=== PATIENT | female | born 1990 | race American Indian/Alaskan Native ===

== ENCOUNTER 2018-03-01 08:19 | Emergency (ER) | payer BC, MEDICAID ==
[2018-03-01 09:35] LABS: Bilirubin,Urine NEG (Negative); Blood,Urine NEG (Negative); Color,Urine Yellow (Yellow); HCG Qualitative,Urine Negative (Negative); Mucus,Urine FEW /HPF; Protein,Urine <15 mg/dL mg/dL (Negative); Urobilinogen,Urine < 2.0 mg/dL (<2.0)
--- NOTE | 2018-03-01 11:40 | Emergency Department Report ---
HPI - General Chief Complaint: Urogenital-Female Time Seen by Provider: 03/01/18 11:26 - [facility] HPI: Patient is a 27-year-old female with no prior medical history presents ED complaining of painful urination for the past 2 days. Patient denies fevers/ chills/nausea vomiting/abdominal pain/vaginal discharge or vaginal bleeding. She states last menstrual period was 02/02/18 and normal ED Past Medical Hx - Past Medical History Previous Medical History?: No - Surgical History Additional Surgical History: C-sections - Social History Smoking Status: Never Smoker Substance Use Type: None - Medications Home Medications: Home Medications Medication Instructions Recorded Confirmed Last Taken Type Cyclobenzaprine [Flexeril] 10 mg PO TID PRN #15 tablet 04/15/16 Unknown Rx Ibuprofen [Motrin 800 MG tab] 800 mg PO Q8HR PRN #30 tablet 04/15/16 Unknown Rx Ciprofloxacin HCl [Ciprofloxacin 500 mg PO Q12HR #10 tab 03/01/18 Unknown Rx TAB] Phenazopyridine [Pyridium] 200 mg PO BID #6 tab 03/01/18 Unknown Rx ED Review of Systems ROS: Stated complaint: POSS UTI Other details as noted in HPI Constitutional: denies: chills, fever Eyes: denies: eye pain, eye discharge, vision change ENT: denies: ear pain, throat pain Respiratory: denies: cough, shortness of breath, wheezing Cardiovascular: denies: chest pain, palpitations Endocrine: no symptoms reported Gastrointestinal: denies: abdominal pain, nausea, diarrhea Genitourinary: denies: urgency, dysuria, discharge Musculoskeletal: denies: back pain, joint swelling, arthralgia Skin: denies: rash, lesions Neurological: denies: headache, weakness, paresthesias Psychiatric: denies: anxiety, depression Hematological/Lymphatic: denies: easy bleeding, easy bruising Physical Exam - Physical Exam Vital Signs: Vital Signs 03/01/18 08:39 Temperature 98.7 F Pulse Rate 50 L Respiratory 16 Rate Blood Pressure 112/40 O2 Sat by Pulse 99 Oximetry Physical Exam: GENERAL: Alert and oriented x3, no apparent distress, Normal Gait, atraumatic. HEAD: Head is normocephalic and a-traumatic. LUNGS: Symetrical with respiration, No wheezing, no rales or crackles, CTAB. HEART: S1, S2 present, regular rate and rhythm without murmur, no rubs, no gallops. Non tender to palpation. Abdomen: No organomegaly, nontender to palpation in all quadrants. No lesions no masses NEUROLOGIC: The patient is cooperative with no focal neurologic deficits. SKIN: Warm and dry, No lesions, No ulceration or induration present. ED Course Vital Signs 03/01/18 08:39 Temperature 98.7 F Pulse Rate 50 L Respiratory 16 Rate Blood Pressure 112/40 O2 Sat by Pulse 99 Oximetry ED Medical Decision Making - Medical Decision Making 27-year-old male presents a mild cystitis ED course: Urinalysis urine test ordered. Urinalysis positive for moderate leukocyte esterase Due to patient having symptoms of dysuria we'll treat with antibioTics. Discussed the patient to take medication as prescribed Vital signs are normal patient is in no acute distress. Critical care attestation.: If time is entered above; I have spent that time in minutes in the direct care of this critically ill patient, excluding procedure time. ED Disposition Clinical Impression: Cystitis, Dysuria Disposition: - TO HOME OR SELFCARE Is pt being admited?: No Does the pt Need Aspirin: No Condition: Stable Instructions: Dysuria (ED), Urinary Tract Infection in Women (ED) Additional Instructions: Make sure to follow up with the primary care physician as discussed. Take all your medications as you've been prescribed. If you have any worsening symptoms or develop new symptoms please return to ED immediately. Prescriptions: Ciprofloxacin HCl [Ciprofloxacin TAB] 500 mg PO Q12HR #10 tab Phenazopyridine [Pyridium] 200 mg PO BID #6 tab Referrals: MATT ESTEVEZ MD [Primary Care Provider] - 3-5 Days ROSANA YOO MD [Referring] - 3-5 Days [facility] [Outside] - 3-5 Days [facility] [Outside] - 3-5 Days Forms: Work/School Release Form(ED) Time of Disposition: 11:44
[2018-03-01 12:16] VITALS: BP 104/56
== END 2018-03-01 12:16 | disposition home or self-care (01) ==
LOC: ED 08:19
DX: N30.90 Cystitis, unspecified without hematuria (principal)
CPT/HCPCS: 81001; 81025; 87086; 99283